=== PATIENT | female | born 1960 | race Caucasian/White ===

== ENCOUNTER → 2017-08-04 15:45 | Outpatient (CLI) | payer OTHER, SELFPAY ==
--- NOTE | 2017-08-04 | DI.RAD.S_ITS ---
PROCEDURE: XR KNEE RT 4V INDICATIONS: PAIN IN RIGHT KNEE TECHNIQUE: 4 views of the knee were acquired. COMPARISON: None. FINDINGS: Bones: No fractures or dislocations. No suspicious bony lesions. Bipartite patella shows posterior marginal spurring and narrowing of the femoral patellar joint space laterally. Marginal spurring is also evident over the weightbearing compartments and tibial spine. Soft tissues: Small joint effusion. No suspicious soft tissue calcifications. IMPRESSION: 1. Small joint effusion. No acute bony abnormality. 2. Tricompartmental osteoarthritis. Dictated by: Jose Ramirez M.D. on 08/04/2017 at 16:25 Approved by: Jose Ramirez M.D. on 08/04/2017 at 16:27
== END ==
PROVIDERS: PCP Student in an Organized Health Care Education/Training Program; Visit Provider Student in an Organized Health Care Education/Training Program
DX: M17.11 Unilateral primary osteoarthritis, right knee (principal); M25.461 Effusion, right knee
CPT/HCPCS: 73564

== ENCOUNTER → 2018-01-12 16:32 | Outpatient (CLI) | payer OTHER, SELFPAY ==
--- NOTE | 2018-01-12 16:34 | DI.RAD.S_ITS ---
PROCEDURE: XR ANKLE RT MIN 3V INDICATIONS: PAIN IN RIGHT LOWER LEG TECHNIQUE: 3 views of the ankle were acquired. COMPARISON: [facility], CR, XR ANKLE MIN 3VW WT BEARING LT, 09/25/2016, 11:34. FINDINGS: Bones: No fractures or dislocations. 2, smooth well-corticated osseous density adjacent to the lateral malleolus possibly related to remote injury. Ankle mortise is normally aligned. No suspicious bony lesions. Posterior calcaneal enthesophyte. Soft tissues: No tibiotalar joint effusion. Achilles tendon appears normal. IMPRESSION: 2 osseous densities adjacent to the medial malleolus which may be related to remote injury. No acute fracture is seen. If pain persist with conservative management, consider cross-sectional imaging such as CT or MRI for further assessment. Dictated by: Lawrence BELCHER Interpreted: Claudette Austin MD on 01/12/2018 at 16:58 Approved by: Claudette Austin MD, PhD on 01/12/2018 at 17:26
== END ==
PROVIDERS: PCP Student in an Organized Health Care Education/Training Program; Visit Provider Student in an Organized Health Care Education/Training Program
DX: M79.661 Pain in right lower leg (principal)
CPT/HCPCS: 73610

== ENCOUNTER → 2018-06-08 17:20 | Outpatient (CLI) | payer OTHER, SELFPAY ==
--- NOTE | 2018-06-08 17:23 | DI.RAD.S_ITS ---
PROCEDURE: XR CHEST 2V INDICATIONS: ACUTE BRONCHITIS TECHNIQUE: 2 views of the chest were acquired. COMPARISON: [facility], , CHEST 2 VIEW, 02/10/2015, 10:48. FINDINGS: Surgical changes and devices: None. Lungs and pleura: Lungs are clear. No pleural effusions or pneumothorax. Mediastinum: Mediastinal contours are normal. Heart size is normal. Bones and chest wall: No suspicious bony abnormalities. Soft tissues appear unremarkable. IMPRESSION: Normal chest. Dictated by: Nichole Benites M.D. on 06/08/2018 at 21:06 Approved by: Nichole Benites M.D. on 06/08/2018 at 21:06
== END ==
PROVIDERS: PCP Student in an Organized Health Care Education/Training Program; Visit Provider Student in an Organized Health Care Education/Training Program
DX: J20.9 Acute bronchitis, unspecified (principal)
CPT/HCPCS: 71046

== ENCOUNTER → 2019-01-20 09:50 | Outpatient (CLI) | payer OTHER, SELFPAY | PROVIDERS: PCP Student in an Organized Health Care Education/Training Program; Visit Provider Student in an Organized Health Care Education/Training Program | DX: Z00.01 Encounter for general adult medical examination with abnormal findings (principal); M85.852 Other specified disorders of bone density and structure, left thigh; Z78.0 Asymptomatic menopausal state; Z87.891 Personal history of nicotine dependence | CPT/HCPCS: 77080 ==

== ENCOUNTER → 2020-06-01 10:00 | Outpatient (CLI) | payer OTHER, SELFPAY ==
[2020-06-01] MEDS: COVID-19 VACC, Ad26(JANSSEN)/PF 0.5 ML IM (10:09)
== END ==
PROVIDERS: PCP Student in an Organized Health Care Education/Training Program; Visit Provider Internal Medicine
DX: Z23 Encounter for immunization (principal)
CPT/HCPCS: 0031A; 91303

== ENCOUNTER → 2024-07-15 15:37 | Outpatient (CLI) | payer OTHER, SELFPAY ==
--- NOTE | 2024-07-15 15:42 | DI.RAD.S_ITS ---
PROCEDURE: XR DEXA AXIAL SKELETON INDICATIONS: OSTEOPOROSIS SCRN,POSTMENOPAUSAL STATUS COMPARISON: [facility], CR, XR DEXA AXIAL SKELETON, 01/20/2019, 10:02. FINDINGS: Lumbar Spine: Bone mineral density 0.941 g/cm2, T score -1.0. There is interval 1.2% increase in total lumbar spine bone mineral density. Left Femoral Neck: Bone mineral density 0.773 g/cm2, T score -0.7. There is interval 22.7% increase in total left femoral neck bone mineral density. Left Hip: Bone mineral density 0.880 g/cm2, T score -0.5. There is interval 1.7% increase in left total hip bone mineral density. Fracture Risk Calculation (when applicable): 10-year fracture risk of a major osteoporotic fracture 6.8 percent and of a hip fracture 0.3 percent. (T score greater or equal to -1.0 to: NORMAL) (T score from -1.1 to -2.4: OSTEOPENIA) (T score less than or equal to -2.5: OSTEOPOROSIS) IMPRESSION: Normal bone mineral density. Interval increase in lumbar spine and left hip bone mineral density compared to previous study. Follow-up guidelines as follows: Osteoporosis: Consider a repeat DEXA and Vertebral Fracture Assessment (VFA) exam in 2 years or sooner if medically necessary, to reassess this patient's status. Osteopenia: Consider a repeat DEXA in 2-3 years to reassess this patient's status, or if there is a new clinical indication. Normal: Consider a repeat DEXA in 5 years or sooner, or if there is a new clinical indication. All treatment decisions require clinical judgment and consideration of individual patient factors, including patient preferences, comorbidities, previous drug use, risk factors not captured in the FRAX model (e.g., frailty, falls, vitamin D deficiency, increased bone turnover, interval significant decline in bone density ) and possible under- or over-estimation of fracture risk by FRAX. In addition, the NOF Guide recommends that FDA-approved medical therapies be considered in postmenopausal women and men age >= 50 years with a: * Hip or vertebral (clinical or morphometric) fracture * T-score of <=-2.5 at the spine or hip * Ten-year fracture probability by FRAX of >= 3% for hip fracture or >=20% for major osteoporotic fracture. Dictated by: Adam Ellison M.D. on 07/17/2024 at 12:56 Approved by: Adam Ellison M.D. on 07/17/2024 at 12:58
== END ==
PROVIDERS: PCP Registered Nurse; Referring Provider Registered Nurse; Visit Provider Registered Nurse
DX: Z13.820 Encounter for screening for osteoporosis (principal); Z78.0 Asymptomatic menopausal state
CPT/HCPCS: 77080